=== PATIENT | female | born 1945 | race Caucasian/White ===

== ENCOUNTER → 2020-01-07 | Day surgery (SDC) | payer MEDICARE ==
[~2020-01-07] MED LIST: GARLIC1 EAC1 PO; HYALURONIC ACI1 EACH PO; MSM500 MG PO; VITAMIN D3250 MC2 PO; [UNRECOGNIZED DRUG - OTHER] PO
--- NOTE | 2020-01-07 16:40 | NUR ---
PT LEFT THE UNIT WALKING INDEPENDENTLY. NO COMPLICATIONS NOTED POST PROCEDURE. ACCOMPANIED OUT BY DAUGHTER.
--- NOTE | 2020-01-09 12:08 | OR ---
[facility] [address] [place], [place] [address] Signed DATE OF OPERATION: 01/07/2020 SURGEON: Shanel Augustin MD PREOPERATIVE DIAGNOSES: 1. Left upper outer quadrant mass, BI-RADS category 5. 2. Family history of breast cancer. POSTOPERATIVE DIAGNOSES: 1. Left upper outer quadrant mass, BI-RADS category 5. 2. Family history of breast cancer. PROCEDURE: Ultrasound-guided left core biopsy of breast upper outer quadrant. ANESTHESIA: 1% lidocaine. INDICATIONS: This 74-year-old white woman is from [place], but transitioning to live locally close to family here in [place]. She was found by her primary provider, Dr. Odalys Lucas on screening mammogram to have an abnormality in the upper outer aspect of the left breast considered BI-RADS category 5. There does appear to be palpable abnormality in the area as well. She is admitted at this time to undergo ultrasound-guided core biopsy of the lesion. She understands the risks of bleeding, infection, and need for additional treatment should malignancy be proven. She understands and she wished to proceed. FINDINGS: The lesion was easily identified with ultrasound. Multiple core biopsies were taken of this area in the surrounding tissue. At least two of the cores appeared to be likely diagnostic. She suffered no complication. DESCRIPTION OF PROCEDURE: In the Day Surgery area in a patient exam room, she was placed in a semi-recumbent position with her left arm elevated. The left breast was prepared with chlorhexidine solution after ultrasound evaluation of the upper outer aspect, which showed the mass in question quite visibly. After preparation of the breast and placement of the ultrasound probe in a sterile sleeve, 1% lidocaine was injected near by the area to allow for entry of a core biopsy device. A small incision was made with an 11 blade once anesthesia was complete, and the area was sterilely draped. Using ultrasound probe as a guide, a large Electronically Signed By: SHANEL AUGUSTIN MD 01/09/20 1208 PATIENT NAME: CHECO JURADO OPERATIVE REPORT DATE OF : 43 REPORT #: [id number] PHYSICIAN: SHANEL AUGUSTIN MD PCP: ODALYS LUCAS MD REPORT IS CONFIDENTIAL AND NOT TO BE RELEASED WITHOUT AUTHORIZATION [facility] [address], [place] [address] Signed multi-core biopsy device was guided to the area. The lesion appeared somewhat firm and unable to accommodate the needle well. On that basis, a biopsy gun, biopsy device was used and core biopsies taken with this. Multiple biopsies were taken, two of which appeared to be diagnostic. Ultrasound confirmation of interrogation of a suspected mass was documented as well. There was no untoward bleeding. The specimen was placed in a formalin container [facility]. A Band-Aid was applied. She tolerated procedure well. There were no complications. MD CARMINA Dc/MAYTEL /[id number] cc: MD Jovita Barlow MD Copies: ODALYS LUCAS DMD, CYNTHIA SUE MD ~ Electronically Signed By: HSANEL AUGUSTIN MD 01/09/20 1208 PATIENT NAME: CHECO JURADO OPERATIVE REPORT DATE OF : 43 REPORT #: [id number] PHYSICIAN: SHANEL AUGUSTIN MD PCP: ODALYS LUCAS MD REPORT IS CONFIDENTIAL AND NOT TO BE RELEASED WITHOUT AUTHORIZATION
--- NOTE | 2020-01-10 16:53 | PATH ---
[facility] [address] [place], [place] [address] Signed THIS IS AN ADDENDUM REPORT SPECIMEN(S): A LEFT UPPER OUTER BREAST SPECIMEN SOURCE: A. LEFT UPPER OUTER BREAST CLINICAL HISTORY: Palpable mass left breast. Left breast biopsy gun biopsy with US guidance. 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 - Nuclear pleomorphism: Score 2. - Mitotic rate: Score 1. - Overall grade: I/III (total score 5/9). - Longest confluent tumor focus: 12 mm. - Lymphovascular invasion: Not identified. - Associated in situ component: Not identified. - Microcalcifications: Present, associated with invasive carcinoma. - Estrogen receptor, progesterone receptor, HER2 by IHC, and Ki-67 proliferating index: Pending, to be reported by an addendum. COMMENT: As part of [employer] [employer]' Quality Improvement Program, this case was reviewed by another member of our pathology staff. The results were called to Dr. Montano's office by [facility] Client Services Department on 01/09/2020. NAL:KAMILLA:cml:C1NR MICROSCOPIC EXAMINATION: Histologic sections of all submitted blocks are examined by light microscopy. These findings, together with the gross examination, support the pathologic diagnosis. GROSS DESCRIPTION: The specimen, labeled "EL," and designated on the requisition "left upper outer breast solid mass," is received in formalin and consists of multiple cores and PATIENT NAME: CHECO JURADO PATHOLOGY DATE OF : 43 REPORT #: [id number] PHYSICIAN: KARTIK PATHOLOGY PCP: ODALYS LUCAS MD REPORT IS CONFIDENTIAL AND NOT TO BE RELEASED WITHOUT AUTHORIZATION [facility] [address] [place] [address] Signed core fragments of white-siddiqi to yellow-siddiqi soft tissue, (ranging in length from 0.1-1.4 cm, and 0.1 cm in diameter). The tissue is inked blue and submitted entirely in cassette (A1). Cold ischemic time: 15 minutes. The specimen was fixed in formalin for approximately 6 hours. AC (under the direct supervision of a pathologist) The Gross Description was prepared using a voice recognition system. The report was reviewed for accuracy; however, sound-alike word errors, addition and/or deletions may occur. If there is any question about this report, please contact Client Services. PERFORMING LABORATORY: The technical component was performed by [facility], [address] [place] [id number] (Customer Relations Coordinator: Cary Combs MD; CLIA# [id number]). [facility], [address] [address] (CLIA# [id number]). ADDITIONAL NOTES: Immunohistochemical and/or in situ hybridization studies were performed on this case with the appropriate positive controls that react as expected. This test was developed and its performance characteristics determined by [facility]. It has not been cleared or approved by the U.S. Food and Drug Administration. The FDA has determined that such clearance or approval is not necessary. This test is used for clinical purposes. It should not be regarded as investigational or for research. [facility] is certified under the Clinical Laboratory Improvement Amendments of 1988 (CLIA) as qualified to perform high complexity clinical laboratory testing. This assay has not been validated for specimens that have been decalcified. REASON FOR ADDENDUM: To add results of additional tests. ADDENDUM PATHOLOGIC DIAGNOSIS: Estrogen receptor: Positive. - Greater than 95% of tumor cells with strong average intensity. Progesterone receptor: Positive. - Greater than 90% of tumor cells with moderate average intensity. Ki-67 proliferation index: 12%. NAL:cml PATIENT NAME: CHECO JURADO PATHOLOGY DATE OF : 43 REPORT #: [id number] PHYSICIAN: KARTIK BELL PCP: ODALYS LUCAS MD REPORT IS CONFIDENTIAL AND NOT TO BE RELEASED WITHOUT AUTHORIZATION [address] [address] Signed ADDENDUM MICROSCOPIC EXAMINATION: Block: A1. The cold ischemia time is 15 minutes. The fixative is 10% NBF. The length of fixation is 6 hours, meeting ASCO/CAP guidelines. Estrogen receptor clone SP1 and progesterone receptor clone 1E2 by [employer] [place], [place]. Detection: HRP Polymer Detection on the [employer] with appropriate controls. Nuclear immunoreactivity of 1% or greater is considered positive by ASCO/CAP 2020 guidelines. Internal control cells for ER are positive. Internal control cells for [place] are positive. A Ki-67 proliferation index is performed, and 500 cells are counted. NAL:cml The technical component was performed by [facility], [address] [place] [id number] (Customer Relations Coordinator: Cary Combs MD; CLIA# [id number]). Professional interpretation was [facility], [address] [address] (CLIA# [id number]). REASON FOR ADDENDUM: To add results of additional testing. ADDENDUM PATHOLOGIC DIAGNOSIS: HER-2 protein by IHC, left upper outer quadrant of breast: - Equivocal; IHC score 2+. ADDENDUM COMMENT: In view of the equivocal IHC result, reflex testing for HER-2 amplification by FISH has been ordered and will be reported by addendum. TTP:[facility] ADDENDUM MICROSCOPIC EXAMINATION: Block: A1. The fixation is 10% buffered formalin. The length of fixation is 6 hours, meeting ASCO/CAP guidelines. HER-2 protein expression by immunohistochemistry using the FDA-approved HER-2 Pathway is performed at [facility], [place], [place], at the request of Dr. Janette Diaz. Standardized batch control materials react appropriately. The presence of tumor is confirmed. Scoring is according to ASCO/CAP 2018 guidelines. Weak to moderate complete membrane staining observed in greater than 10% of tumor cells; score 2+. PATIENT NAME: CHECO JURADO PATHOLOGY DATE OF : 43 REPORT #: [id number] PHYSICIAN: [employer] PATHOLOGY PCP: ODALYS LUCAS MD REPORT IS CONFIDENTIAL AND NOT TO BE RELEASED WITHOUT AUTHORIZATION [place] [id number] [place] [address] Signed The technical and professional components were performed by [facility], [address] [place] [address] (Customer Relations Coordinator: Luis Angel Reed D.O.; CLIA#: [id number]). Diagnostician: Janette Diaz MD Pathologist Diagnostician: Tisha Ziegler MD Pathologist Electronically Signed 01/10/2020 Copies: ~ PATIENT NAME: CHECO JURADO PATHOLOGY DATE OF : 43 REPORT #: [id number] PHYSICIAN: KARTIK PATHOLOGY PCP: ODALYS LUCAS MD REPORT IS CONFIDENTIAL AND NOT TO BE RELEASED WITHOUT AUTHORIZATION
== END ==
LOC: DS 14:00 → OPS 14:00
PROVIDERS: ATTEND Surgery
PROC: 0H95XZX Drainage of Chest Skin, External Approach, Diagnostic (ICD-10-PCS; principal; 2020-01-07)
DX: C50.412 Malignant neoplasm of upper-outer quadrant of left female breast (principal); Z80.3 Family history of malignant neoplasm of breast; I10 Essential (primary) hypertension; Z88.5 Allergy status to narcotic agent; Z91.012 Allergy to eggs
CPT/HCPCS: 19100

== ENCOUNTER 2020-01-29 08:50 | Day surgery (SDC) | payer MEDICARE ==
[~2020-01-29] VITALS: Ht 160 cm; Wt 73.3 kg
[2020-01-29] MEDS ORDERED: METOPROLOL SUCC25 MG PO (09:14)
--- NOTE | 2020-01-29 11:43 | NUR ---
PT ALERT, ORIENTED AND SUPPORTED BY HER MADHU. BOTH PLEASANT, SEEM AT EASE WITH WAITING. ALL QUESTIONS ASKED ANSWERED, PT REQUESTED PRAYER. WILL FOLLOW NEEDED.
--- NOTE | 2020-01-29 13:48 | NUR ---
01/29/20 1347 [place] [address]7 PT ARRIVED TO PACU ON 6L VIA MASK, JAW THRUST USED OFF AND ON TO MAINTAIN AIRWAY, SHALLOW BREATHING NOTED. VSS. PT NONAROUSABLE TO PAINFUL STIMULI.
[2020-01-29] MEDS ORDERED: OXYCODON-ACETA1 EAC2 PO (13:54)
[2020-01-29] MEDS ORDERED: IBUPROFEN600 MG PO (13:54)
[2020-01-29] MEDS ORDERED: ACETAMINOPHEN500 MG PO (13:54)
--- NOTE | 2020-01-29 16:16 | NUR ---
1455: PATIENT BACK IN DAY SURGERY ROOM FROM PACU. RATES PAIN 4/10. LEFT BREAST DRESSING WITH SMALL AMOUNT OF RED DRAINAGE. LEFT AXILLA DRESSING CDI. VS CHECKED. SCDs ON. TOLERATING SIPS OF WATER. GIVEN PUDDING TO EAT BEFORE TAKING PAIN PILL. 1515: PATIENT PUT SOFTWARE CLERK LIGHT. PATIENT C/O NAUSEA. EMESIS BAG GIVEN TO PATIENT. VERBAL ORDER OBTAINED FROM DR. AUGUSTIN FOR IV PHENERGAN. IV PHENERGAN GIVEN TO PATIENT. DAUGHTER AT BEDSIDE. 1530: PATIENT ASSISTED OOB TO BSC. VOID WITHOUT DIFFICULTY. ASSISTED BACK TO BED. SCDs REPLACED. PATIENT DROWSY AFTER PHENERGAN ADMIN. O2 NC AT 2 L/MIN PLACED BACK ON PATIENT. AT BEDSIDE. CALL LIGHT WITHIN REACH.
--- NOTE | 2020-01-29 16:25 | NUR ---
1545: PATIENT DROWSY. EASILY AWAKENS TO VOICE AND TOUCH. PATIENT AWAKENED FOR VS. CONTINUES TO RATE PAIN 4/10. STATES NAUSEA IMPROVED, BUT STILL THERE. AT BEDSIDE. NO NEEDS AT THIS TIME.
--- NOTE | 2020-01-29 16:51 | NUR ---
IS AT THE BEDSIDE. PT REPORTS MINIMAL/DULL PAIN. SHE STATES SHE IS STILL SLEEPY. DISCHARGE CRITERIA IS REVIEWED WITH PT AND . CALL LIGHT WITHIN REACH. NO ADDITIONAL NEEDS.
--- NOTE | 2020-01-29 17:44 | NUR ---
PT IS GIVEN VERBAL DC INSTRUCTIONS, SHE AND DAUGHTER VERBALIZES UNDERSTANDING. QUESTIONS ARE ASKED AND ANSWERED. PT IS TAKEN TO CAR VIA WC, SHE TRANSFERS HERSELF FROM WC TO CAR.
--- NOTE | 2020-01-30 08:31 | OR ---
[facility] [address] [place], [place] [address] Signed DATE OF OPERATION: 01/29/2020 SURGEON: Shanel Augustin MD DATE OF PROCEDURE: 01/29/2020 PREOPERATIVE DIAGNOSIS: Left central upper infiltrating ductal breast carcinoma. POSTOPERATIVE DIAGNOSIS: Left central upper infiltrating ductal breast carcinoma. Negative sentinel lymph nodes x4 on frozen. PROCEDURES: 1. Injection of methylene blue for sentinel lymph node identification. 2. Left sentinel lymph node biopsy x4 (deep axillary lymph nodes). 3. Left central superior partial mastectomy with oncoplastic closure. ANESTHESIA: General endotracheal, Ric Herring CRNA INDICATIONS: This 74-year-old white woman is a patient of Dr. Odalys Lucas, underwent mammography where she was noted to have a mass in the superior central breast on the left side. Clinical examination showed thickening in the area consistent with a mass. Her mammogram by Dr. Woods was considered BI-RADS category 5. She underwent ultrasound-guided biopsy by pr on January 06 confirming infiltrating ductal carcinoma, grade 1/3 without lymphovascular invasion and no evidence of in situ component. She has been presented to the options of breast cancer management and opts to undergo breast conservation approach to include partial mastectomy, sentinel lymph node biopsy, possible axillary lymph node dissection and postoperative radiation. Chemotherapy will be determined more on other pathologic findings including lymph node status. The risks of bleeding, infection, cosmetic deformity, other unforeseen complications was reviewed in detail with her. She and her , as well as three daughters including one who is a nurse considered this and she wishes to proceed. FINDINGS: Electronically Signed By: SHANEL AUGUSTIN MD 01/30/20 0831 PATIENT NAME: CHECO JURADO OPERATIVE REPORT DATE OF : 43 REPORT #: [id number] PHYSICIAN: SHANEL AUGUSTIN MD PCP: ODALYS LUCAS MD REPORT IS CONFIDENTIAL AND NOT TO BE RELEASED WITHOUT AUTHORIZATION [facility] [address] [place], [place] [address] Signed Good uptake to sentinel lymph nodes was noted with radionuclide as well as methylene blue dye. Four sentinel lymph nodes were excised, all of them considered negative on frozen pathology as interpreted by Dr. Diaz. Final pathology of those lymph nodes is pending of course. As regards to the breast mass, it is in the central superior portion of the breast and wide resection was undertaken with a clinically negative margin. Dissection was carried down to the pectoralis. The sizable defect was noted in the central portion of the breast requiring an oncoplastic closure technique to preserve breast contour. This was accomplished, however, reasonably well. Blood loss in the operation was between 30 and 50 mL. DESCRIPTION OF PROCEDURE: The patient was brought to the operating room having been received from radiology suite with radionuclide dye injection for sentinel lymph node identification. She was given a general anesthetic. Preoperative antibiotic Ancef was given. Sequential compression device stockings used and heparin subcutaneously administered. The left breast was palpated in the superior central aspect somewhat laterally on the left side was noted as the primary tumor. Palpation of the axilla continued to show no palpable lymph nodes. The C-Trak radionuclide probe was used to identify uptake in the left axilla which was considered good. The left breast and axilla and upper arm were prepared with a Betadine based solution and draped sterilely. Using the C-Trak probe, now sheathed in a sterile device sleeve, a small transverse incision was made in the area of highest uptake. Dissection was carried through the subcutaneous fat and axillary tissue with blunt electrocautery dissection. A blue lymphatic was identified and followed to a very obvious positive lymph node confirmed both by dye and radionuclide uptake. This was excised as sentinel lymph node #1. A nearby node was similarly excised and listed as node #2. Further dissection more cephalad in the axilla revealed two other nodes, both of them with uptake of radionuclide and one of the two with dye and nuclide. All these were sent for frozen pathology. There was good hemostasis in the area. Small clips had been applied. Gauze was packed in the axilla. Attention turned towards the primary tumor. The palpable tumor was oriented in the superior aspect a few cm from the areolar margin centrally located and somewhat to the left. Most cosmetically beneficial incision was deemed likely a circumareolar incision and the areolar margin was marked and under tension the skin incised in the superior aspect from Electronically Signed By: SHANEL AUGUSTIN MD 01/30/20 0831 PATIENT NAME: CHECO JURADO OPERATIVE REPORT DATE OF : 43 REPORT #: [id number] PHYSICIAN: SHANEL AUGUSTIN MD PCP: ODALYS LUCAS MD REPORT IS CONFIDENTIAL AND NOT TO BE RELEASED WITHOUT AUTHORIZATION [facility] [address] [place] [address] Signed about 12 o'clock to 3 o'clock. A small flap was developed superiorly mindful of the position of the mass. Dissection was undertaken with electrocautery primarily maintaining a clinically negative margin. A wide resection was required due to the desmoplastic response to the tumor. Dissection medially, laterally, inferiorly, and of course deeply was meticulously undertaken making every effort to maintain a negative margin. A rather sizable excision was undertaken surprisingly so considering the circumareolar incision size. The specimen was marked with a suture prior to explantation from the site to assure accuracy. A short stitch was marked superiorly, long stitch lateral and a double stitch in the deep margin. Palpation within the cavity showed there to be no suspicious remaining lesion within the remaining breast parenchyma. Irrigation was undertaken and hemostasis assured with electrocautery. A sizable defect was noted in the central breast. Cosmetic appearance would be quite objectionable without additional efforts. The superior breast pedicle was mobilized from the pectoralis fascia as well as some of the lower aspect and moved inferior superior direction and secured with interrupted 2-0 Vicryl suture. The lateral breast tissue was pulled medially to secure the lateral portion. Several layers of interrupted 2-0 Vicryl were used to provide this oncoplastic closure. The resulting dimple in the superior aspect of the breast was notable and on that basis the skin and a small layer of fatty tissue freed from the underlying breast parenchyma with electrocautery freeing the skin more fully. Some bleeding was noted in the superior medial aspect, which took a fair amount of time to control with sutures and electrocautery, but it did allow for mobilization of the flap in a far improved cosmetic appearance. The skin was then closed with interrupted 2-0 Vicryl in deep dermal layer and running subcuticular 3-0 Vicryl for the skin. At this point, the frozen pathology of lymph nodes was confirmed to have none of the four lymph nodes with metastatic disease. The axillary incision was found to be hemostatic and closed in layers with interrupted 2-0 Vicryl and running subcuticular 3-0 Vicryl. Steri-Strips were applied as was a silver sponge dressing. Blood loss was between 30 and 50 mL in aggregate. Sponge, needle, and instrument counts were reported as correct x3. Shanel Augustin MD JM/MODL /[id number] Electronically Signed By: SHANEL AUGUSTIN MD 01/30/20 0831 PATIENT NAME: CHECO JURADO OPERATIVE REPORT DATE OF : 43 REPORT #: [id number] PHYSICIAN: SHANEL AUGUSTIN MD PCP: ODALYS LUCAS MD REPORT IS CONFIDENTIAL AND NOT TO BE RELEASED WITHOUT AUTHORIZATION [address] [address] Signed cc: Odalys Lucas MD Copies: ODALYS LUCAS DMD ~ Electronically Signed By: SHANEL AUGUSTIN MD 01/30/20 0831 PATIENT NAME: CHECO JURADO OPERATIVE REPORT DATE OF : 43 REPORT #: [id number] PHYSICIAN: SHANEL AUGUSTIN MD PCP: ODALYS LUCAS MD REPORT IS CONFIDENTIAL AND NOT TO BE RELEASED WITHOUT AUTHORIZATION
--- NOTE | 2020-02-01 14:51 | PATH ---
[facility] [address] [place], [place] [address] Signed SPECIMEN(S): A LEFT AXILLA SENTINEL NODE 1 2 SPECIMEN(S): B LEFT AXILLA SENTINEL NODE 3 SPECIMEN(S): C LEFT AXILLA SENTINEL NODE 4 SPECIMEN(S): D LEFT UPPER CENTRAL BREAST SPECIMEN SOURCE: A. LEFT AXILLA SENTINEL NODE 1 2 B. LEFT AXILLA SENTINEL NODE 3 C. LEFT AXILLA SENTINEL NODE 4 D. LEFT UPPER CENTRAL BREAST CLINICAL HISTORY: Lumpectomy with SLN and possible axillary. Specimen Time to Fixation- 01/29/2020 12:45:00 PM FROZEN SECTION DIAGNOSIS: A.[place] lymph node #1 and #2: - No evidence of malignancy in payable representative sections frozen. Janette Diaz M.D. 12:52 p.m. 01-29-2020 B.#3 sentinel lymph node: - No evidence of malignancy in payable representative section frozen. Janette Diaz M.D. 12:52 p.m. 01-29-2020 C.Left axilla sentinel lymph node #4: - Scant lymphoid tissue identified. - No evidence of malignancy in payable representative sections frozen. Janette Diaz M.D. 12:52 p.m. 01-29-2020 Frozen section diagnoses called to Dr. Montano at 12:52 p.m. FINAL PATHOLOGIC DIAGNOSIS: A. [place] lymph nodes #1 and #2, left axilla, excisional biopsy: - No evidence of malignancy in two lymph nodes (0/2). B. [place] lymph node #3, left axilla, excisional biopsy: - No evidence of malignancy in one lymph node (0/1). C. [place] lymph node #4, left axillar, excisional biopsy: - No evidence of malignancy in one lymph node (0/1). D. Breast, left, upper central, lumpectomy: - Invasive ductal carcinoma with the following features: - Tumor size: 1.9 x 1.9 x 1.8 cm. - Histologic type: Invasive ductal carcinoma. - Histologic grade ([place] histologic score): - Glandular (acinar)/tubular differentiation: Score 3. PATIENT NAME: CHECO JURADO PATHOLOGY DATE OF : 43 REPORT #: [id number] PHYSICIAN: KARTIK BELL PCP: ODALYS LUCAS MD REPORT IS CONFIDENTIAL AND NOT TO BE RELEASED WITHOUT AUTHORIZATION [facility] [address] [place], [place] [address] Signed - Nuclear pleomorphism: Score 2. - Mitotic rate: Score 1. - Overall grade: II of III (total score 6 of 9). - Tumor focality: Single focus of invasive carcinoma. - Ductal carcinoma in situ (DCIS): Present, negative for extensive intraductal component (EIC). - Architectural patterns: Solid and cribriform. - Nuclear grade: Grade 2 (intermediate). - Necrosis: Present, focal. - Lobular carcinoma in situ (LCIS): Not identified. - Margins: - Invasive carcinoma margins: Uninvolved by invasive carcinoma. - Lateral: 3 mm. - Superior, inferior, medial, anterior, and posterior: Greater than 10 mm. - DCIS margins: Very close, but negative (tumor not on cautery or ink). - Lateral: Less than 0.5 mm. - Superior, inferior, medial, anterior, and posterior: Greater than 10 mm. - Regional lymph nodes: Uninvolved by tumor cells (see specimens A-C). - Total number of lymph nodes examined: 4. - Number of sentinel lymph nodes examined: 4. - Additional findings: Biopsy site changes, fibrocystic change including stromal fibrosis and cyst formation. - Microcalcifications: Present in invasive carcinoma and DCIS. - Breast biomarker testing: Please refer to previously performed studies ([id number], 01/08/2020) which were reported as ER positive, AK positive, HER2 negative by FISH and Ki-67 of 12%. - Pathologic stage classification (pTNM, AJCC 8th ed.): pT1c (sn) pN0. COMMENT: Regarding specimens A-C: Pancytokeratin (AE1/AE3) immunohistochemical stains (with appropriately staining controls) were performed on payable representative sections of the sentinel lymph nodes and confirm the absence of tumor cells. Regarding specimen D: DCIS is focally less than 0.5 mm from the lateral margin spanning a linear length of 5 mm. As part of [employer]' Quality Improvement Program, this case was reviewed by another member of our pathology staff. PATIENT NAME: CHECO JURADO PATHOLOGY DATE OF : 43 REPORT #: [id number] PHYSICIAN: [employer] [employer] [facility]OLOG[facility] PCP: ODALYS LUCAS MD REPORT IS CONFIDENTIAL AND NOT TO BE RELEASED WITHOUT AUTHORIZATION [facility] [address] [place] [id number] Signed NAL:NRT:cml:C1NR MICROSCOPIC EXAMINATION: Histologic sections of all submitted blocks are examined by light microscopy. These findings, together with the gross examination, support the pathologic diagnosis. GROSS DESCRIPTION: Four specimens are received in four containers, labeled "Checo Jurado." A. The specimen, labeled " Checo Jurado," and designated on the requisition "left axillary #1 and #2 sentinel lymph node," is received fresh for frozen section diagnosis and consists of a 3.5 x 2.0 x 0.5 cm portion of adipose tissue that contains two lymph nodes. Lymph node #1 (1.7 x 0.5 x 0.5 cm) and lymph node #2 (0.8 x 0.5 x 0.5 cm). Lymph node #2 is inked green. The lymph nodes are bisected and half are submitted for frozen section and resubmitted as received in cassette (A1). The remainder of the lymph nodes are submitted in cassette (A2). Only adipose tissue remains within the container. B. The specimen, labeled " Checo Jurado," and designated on the requisition "left axilla #3," is received fresh for frozen section diagnosis and consists of a 1.0 x 1.0 x 0.5 cm lymph node. The lymph node is bisected and half is submitted for frozen section and resubmitted as received as (B1). All the remainder of the lymph node is submitted in cassette (B2). C. The specimen, labeled " Checo Jurado," and designated on the requisition "left axilla sentinel lymph node #4," is received fresh for frozen section diagnosis and consists of one possible lymph node (cauterized). The possible lymph node is sectioned to show unremarkable fibroadipose tissue. Information Tech sections are submitted for frozen section and resubmitted as received in cassettes (C1). The remainder of the specimen is submitted in cassette (C2). D. The specimen, labeled "Checo Jurado," and designated on the requisition "left upper central breast mass," is received in formalin and consists of a 67 gram, oriented portion of yellow-siddiqi fibroadipose tissue that is 7.4 x 7.0 x 3.7 cm. A short suture identifies the superior margin, a long suture identifies the lateral margin, a double suture identifies the deep/posterior margin. The specimen is inked as follows: superior - blue; inferior - green; medial - red; lateral - orange; anterior - yellow; and posterior - black. The specimen is PATIENT NAME: CHECO JURADO PATHOLOGY DATE OF : 43 REPORT #: [id number] PHYSICIAN: KARTIK BELL PCP: ODALYS LUCAS MD REPORT IS CONFIDENTIAL AND NOT TO BE RELEASED WITHOUT AUTHORIZATION [facility] [address] [place], [place] [address] Signed serially sectioned from superior to inferior into 10 slices revealing a 1.9 x 1.9 x 1.8 cm pink-white firm, ill-defined mass. The mass is present in slices 3-7, 2.4 cm from the anterior soft tissue margin, 1.0 cm from the posterior soft tissue margin, 2.5 cm from the superior soft tissue margin, 2.3 cm from the inferior soft tissue margin, 1.0 cm from the medial soft tissue margin, and 0.4 cm from the lateral soft tissue margin. Approximately 90% of the remaining specimen is a yellow-siddiqi greasy adipose tissue and 10% is a pink-siddiqi rubbery fibrous tissue. Information Tech sections are submitted in six cassettes. Cassette summary: (D1-D4) slice four (D5) superior soft tissue resection margin, perpendicular, slice one (D6) inferior soft tissue resection margin, slice 10. Cold ischemia time: Insufficient data to calculate. Approximate Formalin time: 12-24 hours. FB (under the direct supervision of a pathologist) The Gross Description was prepared using a voice recognition system. The report was reviewed for accuracy; however, sound-alike word errors, addition and/or deletions may occur. If there is any question about this report, please contact Client Services. ADDITIONAL NOTES: Immunohistochemical and/or in situ hybridization studies were performed on this case with the appropriate positive controls that react as expected. This test was developed and its performance characteristics determined by [facility]. It has not been cleared or approved by the U.S. Food and Drug Administration. The FDA has determined that such clearance or approval is not necessary. This test is used for clinical purposes. It should not be regarded as investigational or for research. [facility] is certified under the Clinical Laboratory Improvement Amendments of 1988 (CLIA) as qualified to perform high complexity clinical laboratory testing. PERFORMING LABORATORY: The frozen section was performed by [facility], [address] [place] [address] (CLIA# [id number]). The technical component was performed by [facility], [address] [place] [id number] (Director General: Cary Combs MD; CLIA# [id number]). Professional interpretation was performed by PATIENT NAME: CHECO JURADO PATHOLOGY DATE OF : 43 REPORT #: [id number] PHYSICIAN: [facility]IK PATHOLOGY PCP: ODALYS LUCAS MD REPORT IS CONFIDENTIAL AND NOT TO BE RELEASED WITHOUT AUTHORIZATION [facility] [address] [place], [place] [address] Signed [facility], [place] [facility], [address] [address] (CLIA# [id number]). Diagnostician: Janette Diaz MD Pathologist Electronically Signed 02/01/2020 Copies: ~ PATIENT NAME: CHECO JURADO PATHOLOGY DATE OF : 43 REPORT #: [id number] PHYSICIAN: [facility]ARTIK PATHOLOGY PCP: ODALYS LUCAS MD REPORT IS CONFIDENTIAL AND NOT TO BE RELEASED WITHOUT AUTHORIZATION
== END 2020-01-29 17:50 | disposition home or self-care (01) ==
LOC: DS 08:50
PROVIDERS: ATTEND Surgery
PROC: 3E0W3HZ Introduction of Radioactive Substance into Lymphatics, Percutaneous Approach (ICD-10-PCS; 2020-01-29)
PROC: 0HBU0ZZ Excision of Left Breast, Open Approach (ICD-10-PCS; principal; 2020-01-29 10:45)
PROC: 07B60ZX Excision of Left Axillary Lymphatic, Open Approach, Diagnostic (ICD-10-PCS; 2020-01-29 10:45)
DX: C50.112 Malignant neoplasm of central portion of left female breast (principal); C50.412 Malignant neoplasm of upper-outer quadrant of left female breast; I10 Essential (primary) hypertension; E11.9 Type 2 diabetes mellitus without complications; R19.7 Diarrhea, unspecified; Z80.3 Family history of malignant neoplasm of breast; Z88.5 Allergy status to narcotic agent; Z91.012 Allergy to eggs
CPT/HCPCS: 00404; 88305; 88307; 88341; 88342; J0131; J0690; J1100; J1170; J1644; J1885; J2001; J2405; J2550; J2704; J3010; J7121; Q9968